=== PATIENT | female | born 1975 | race Hispanic/Latino ===

== ENCOUNTER → 2023-05-31 | Outpatient (CLI) | payer BC | END | disposition home or self-care (01) | LOC: SHCH 14:04 | PROVIDERS: ATTEND Student in an Organized Health Care Education/Training Program | DX: I51.7 Cardiomegaly (principal); R01.1 Cardiac murmur, unspecified | CPT/HCPCS: 93306 ==

== ENCOUNTER 2023-06-17 06:23 | Day surgery (SDC) | payer BC ==
[2023-06-16 11:09] VITALS: PULSE 94; RESP 17
[~2023-06-17] VITALS: Ht 165.1 cm; Wt 95.2 kg
[2023-06-17] VITALS (8 sets, daily range): BP systolic 112–189; BP diastolic 41–83; PULSE 76–88; RESP 16
[~2023-06-17 06:23] MED LIST: CARV12.511 PO; CETI10TA57 PO; CHOL500045 PO; HYDR-3422 PO; HYDR25TA PO; LOSA100T59 PO; MV-M1TAB46 PO; NORE-8 PO; POTA10CA85 PO
[2023-06-17] MEDS: LIDOCAINE HCL 2% VISCOUS 15 ML UDCUP PO ONE (07:30)
[2023-06-17] MEDS ORDERED: FENTANYL CITRATE PF 50 MCG/1 ML 2ML VIAL IVP ONE (07:30)
[2023-06-17] MEDS ORDERED: MIDAZOLAM HCL 1 MG/ML 5ML VIAL IVP ONE (07:30)
[2023-06-17] MEDS ORDERED: MIDAZOLAM HCL 1 MG/ML 2ML VIAL ONE (07:43)
[2023-06-17] MEDS ORDERED: PROPOFOL 10 MG/ML 20ML VIAL IV ONE (07:51)
[2023-06-17] MEDS ORDERED: SUCCINYLCHOLINE CHLORIDE 20 MG/ML 10 ML VIAL ONE (07:52)
[2023-06-17] MEDS ORDERED: PHENYLEPHRINE HCL 10 MG/ML 1ML VIAL IV ONE (07:53)
[2023-06-17] MEDS: 0.9%NACL 1000ML 1,000 ML IV ONE (09:31)
== END 2023-06-17 09:10 | disposition home or self-care (01) ==
LOC: DAH 06:23
PROVIDERS: ATTEND Student in an Organized Health Care Education/Training Program
DX: D15.1 Benign neoplasm of heart (principal); I08.3 Combined rheumatic disorders of mitral, aortic and tricuspid valves; I10 Essential (primary) hypertension; E66.01 Morbid (severe) obesity due to excess calories; E03.9 Hypothyroidism, unspecified; Z88.0 Allergy status to penicillin; Z98.891 History of uterine scar from previous surgery; Z98.890 Other specified postprocedural states; Z82.49 Family history of ischemic heart disease and other diseases of the circulatory system; Z88.3 Allergy status to other anti-infective agents; Z68.34 Body mass index [BMI] 34.0-34.9, adult; Z79.01 Long term (current) use of anticoagulants
CPT/HCPCS: 93005; 93312; 93926; 93325; J0330; J7030; J2704; J2371; A4620; A4615; A4215; A4657; A4222; A4221; A4663; A4216; A4606; A4223 ×3; 99152; J2250; J3010; G0500; J3490